=== PATIENT | female | born 1990 | race African-American/Black ===

== ENCOUNTER 2020-12-01 18:40 | Emergency (ER) | payer SELFPAY ==
[~2020-12-01] VITALS: Ht 152.4 cm; Wt 69.7 kg
[2020-12-01 18:45] VITALS: BP 141/92
--- NOTE | 2020-12-01 18:59 | PHYS DOC ---
Adult General Chief Complaint Chief Complaint: UPPER EXTREMITY PAIN HPI HPI Patient is a 30-year-old female patient presenting to the ED today complaining of mild intermittent right shoulder pain that began a couple minutes prior to coming to the ED. Patient states she was being arrested by police because they smelled marijuana in her vehicle. She states during the process they "manhandled out". She states the pain is worse on raising her right upper extremity above her chest. Denies anything specifically relieving the pain. Describes the pain as throbbing and intermittent (KIMBERLY PARK APRN) Review of Systems Review of Systems Constitutional: Denies fever or chills [] GI: Denies abdominal pain, nausea, vomiting, bloody stools or diarrhea [] : Denies dysuria or hematuria [] Musculoskeletal: Reports right shoulder pain. Denies back pain or joint pain [] Integument: Denies rash or skin lesions [] Neurologic: Denies headache, focal weakness or sensory changes [] All other systems were reviewed and found to be within normal limits, except as documented in this note. (KIMBERLY PARK APRN) Allergies Allergies Allergies Coded Allergies Type Severity Reaction Last Updated Verified No Known Drug Allergies 12/01/20 No (KIMBERLY PARK APRN) Physical Exam Physical Exam Constitutional: Well developed, well nourished, no acute distress, non-toxic appearance. [] Skin: Warm, dry, no erythema, no rash. [] Back: No tenderness, no CVA tenderness. [] Extremities: No tenderness, no cyanosis, no clubbing, ROM intact, no edema. +2 bilateral radial pulses. Cap refill less than 2 seconds bilateral fingers. Neurologic: Alert and oriented X 3, normal motor function, normal sensory f unction, no focal deficits noted. [] Psychologic: Affect normal, judgement normal, mood normal. [] (KIMBERLY PARK APRN) EKG EKG [] (KIMBERLY PARK APRN) Radiology/Procedures Radiology/Procedures []PROCEDURE: SHOULDER 2+V RIGHT Exam: Right shoulder 3 views INDICATION: Trauma TECHNIQUE: Frontal view of the right shoulder with internal and external rotation and transscapular Y views Comparisons: None FINDINGS: Bone mineralization is normal. No acute or healed fractures. Soft tissues are unremarkable. Joint spaces are well-maintained. IMPRESSION: No acute osseous abnormality. Electronically signed by: Sariah Diaz MD (12/01/2020 8:17 PM) [facility] DICTATED AND SIGNED BY: SARIAH DIAZ MD DATE: 12/01/202015 CC: KIMBERLY PARK APRN; PCP,VENANCIO ~MTH0 0 (KIMBERLY PARK APRN) Heart Score Risk Factors: Risk Factors: DM, Current or recent (<one month) smoker, HTN, HLP, family history of CAD, obesity. Risk Scores: Risk Factors: DM, Current or recent (<one month) smoker, HTN, HLP, family history of CAD, obesity. (KIMBERLY PARK APRN) Course & Med Decision Making Course & Med Decision Making Pertinent Labs and Imaging studies reviewed. (See chart for details) This is a 30-year-old female presenting to the ED today complaining of right shoulder pain, symptoms began a couple minutes prior to coming to the ED during police arrest. Right shoulder x-rays interpreted by radiologist are negative for any acute findings, discharged home. Ice elevation encouraged. OTC pain relievers. Ortho provided. (KIMBERLY PARK APRN) Dragon Disclaimer Dragon Disclaimer This electronic medical record was generated, in whole or in part, using a voice recognition dictation system. (KIMBERLY PARK APRN) Departure Departure: Impression: Primary Impression: Right shoulder strain Disposition: 01 DC HOME SELF CARE/HOMELESS Condition: STABLE Referrals: PCP,VENANCIO (PCP) BLAINE MALONE MD follow up in 1 week Patient Instructions: Shoulder Sprain Additional Instructions: You were seen for right shoulder pain, your right shoulder x-rays are negative for any acute findings. Try to ice and elevate the extremity through full range of motion several times a day and take [id number] pain relievers. Follow-up with the provided orthopedic doctor in 1 to 2 weeks. Attending Co-Sign Attending Co-Sign The patient was seen and interviewed as well as examined at the bedside. The chart was reviewed. The case was discussed. Agree with the plan of care. (JEFRY KELSEY MD) Dragon Disclaimer This chart was dictated in whole or in part using Voice Recognition software in a busy, high-work load, and often noisy Emergency Department environment. It may contain unintended and wholly unrecognized errors or omissions. (JEFRY KELSEY MD) Attending Signature Attending Signature I have participated in the care of this patient and I have reviewed and agree with all pertinent clinical information above including history, exam, and recommendations. (JEFRY KELSEY MD) Problem Qualifiers Primary Impression: Right shoulder strain Encounter type: initial encounter Qualified Codes: S46.911A - Strain of unspecified muscle, fascia and tendon at shoulder and upper arm level, right arm, initial encounter KIMBERLY PARK APRN Dec 01, 2020 18:59 JEFRY KELSEY MD Dec 02, 2020 01:47
--- NOTE | 2020-12-01 20:19 | RAD ---
Exam: Right shoulder 3 views INDICATION: Trauma TECHNIQUE: Frontal view of the right shoulder with internal and external rotation and transscapular Y views Comparisons: None FINDINGS: Bone mineralization is normal. No acute or healed fractures. Soft tissues are unremarkable. Joint spa jeff are well-maintained. IMPRESSION: No acute osseous abnormality. Electronically signed by: Sariah Devlin MD (12/01/2020 8:17 PM) [facility]
== END 2020-12-01 20:12 | disposition home or self-care (01) ==
LOC: ER 18:40
DX: S46.811A Strain of other muscles, fascia and tendons at shoulder and upper arm level, right arm, initial encounter (principal); X58.XXXA Exposure to other specified factors, initial encounter; Y93.89 Activity, other specified; Y92.89 Other specified places as the place of occurrence of the external cause; Y99.8 Other external cause status
CPT/HCPCS: 73030; 99283

== ENCOUNTER 2021-08-21 06:30 | Emergency (ER) | payer SELFPAY ==
[~2021-08-21] VITALS: Ht 152.4 cm; Wt 72.0 kg
[2021-08-21] MEDS ORDERED: IV NORMAL SALINE 1,000ML 1,000 ML IV ONE (07:00)
[2021-08-21 07:24] LABS: BACTERIA,URINE 0 /HPF (0-FEW); BILIRUBIN,URINE NEG (NEG); CLARITY,URINE HAZY; COLOR,URINE YELLOW; GLUCOSE,URINE NEG (NEG); NITRITE,URINE NEG (NEG); SQUAMOUS EPITHELIAL CELL,UR MANY /LPF; UROBILINOGEN,URINE 0.2 mg/dL (0.2 mg/dL)
[2021-08-21 07:41] LABS: U PREG PATIENT NEGATIVE (NEG)
[2021-08-21 08:03] LABS: BASO # 0.1 x10^3/uL (0.0-0.2); BASO % 1 % (0-3); EOS # 0.1 x10^3/uL (0.0-0.7); EOS % 0 % (0-3); HEMATOCRIT 40.1 % (36.0-47.0); HEMOGLOBIN 13.2 g/dL (12.0-15.5); LYMPH # 4.1 x10^3/uL (1.0-4.8); LYMPH % 34 % (24-48); MEAN CORPUSCULAR HEMOGLOBIN 32 pg (25-35); MEAN CORPUSCULAR HGB CONC 33 g/dL (31-37); MEAN CORPUSCULAR VOLUME 97 fL (79-100); MONO # 0.7 x10^3/uL (0.0-1.1); MONO % 6 % (0-9); NEUT # 7.2 x10^3uL (1.8-7.7); NEUT % 60 % (31-73); PLATELET COUNT 245 x10^3/uL (140-400); RED BLOOD COUNT 4.13 x10^6/uL (3.50-5.40); RED CELL DISTRIBUTION WIDTH 13.7 % (11.5-14.5); WHITE BLOOD COUNT 12.2 x10^3/uL (4.0-11.0)
[2021-08-21 08:10] LABS: CALCIUM 8.9 mg/dL (8.5-10.1); CREATININE 0.8 mg/dL (0.6-1.0); GFR 100.6; POTASSIUM 3.9 mmol/L (3.5-5.1)
[2021-08-21 08:15] LABS: ALBUMIN 4.5 g/dL (3.4-5.0); ALBUMIN/GLOBULIN RATIO 1.1 (1.0-1.7); MAGNESIUM 2.1 mg/dL (1.8-2.4); TOTAL BILIRUBIN 0.3 mg/dL (0.2-1.0); TOTAL PROTEIN 8.5 g/dL (6.4-8.2)
[2021-08-21] MEDS ORDERED: CONTRAST GIVEN. MC PRN (08:45)
[2021-08-21] MEDS ORDERED: IOHEXOL 300 MG/ML 75 ML VIAL. IV ONE (08:45)
--- NOTE | 2021-08-21 09:12 | RAD ---
Exam: CT abdomen/pelvis with intravenous contrast Indication: Lower abdominal/pelvic pain and vaginal bleeding. Comparison: None Technique: Helical CT imaging performed of the abdomen and pelvis after the intravenous administratio n of contrast. Sagittal and coronal reformats were obtained. One or more of the following individualized dose reduction techniques were utilized for this examinat ion: 1. Automated exposure control 2. Adjustment of the mA and/or kV according to patient size 3. Use of iterative reconstruction technique. Findings: Lower chest: Lung bases are clear. The heart is normal in size. Liver: The liver is normal in size. No focal lesion. Gallbladder/Biliary Tree: Normal. Pancreas: Normal. Spleen: Normal. Adrenal Glands: Normal Kidneys/Ureters/Bladder: Kidneys are normal in size and enhance symmetrically. No hydronephrosis. Ure ters and bladder are unremarkable. Reproductive Organs: The uterus is present and anteverted. There are irregular hypoattenuating cystic areas within the uterus in the region of the endometrial canal, and in the vagina. There is a 5.3 x 4.1 cm cystic lesion in the left ovary. The right ovary is normal. Stomach, small bowel, and colon: Stomach is normal. There is no small bowel obstruction. The colon is normal. Vasculature: Abdominal aorta is normal in caliber. Lymph Nodes: There are small bilateral external iliac chain lymph nodes measuring up to 6 mm short ax is, nonspecific. Peritoneum and retroperitoneum: Small amount of free fluid in the pelvis posterior to the uterus on t he right and immediately adjacent to the left ovarian lesion. Bones: No acute osseous abnormality. Impression: 1. Irregular cystic areas within the uterus in the region of the endometrial canal and in the vagina . There is also a 5.3 x 4.1 cm cystic lesion in the left ovary. Recommend pelvic ultrasound to [facility] evaluate. 2. Small amount of free fluid in the pelvis. Electronically signed by: Clarice Allen MD (08/21/2021 9:10 AM) [id number]
[2021-08-21 09:52] VITALS: BP 133/80
--- NOTE | 2021-08-21 10:49 | RAD ---
EXAM: ULTRASOUND PELVIS INDICATION: Reason: cystic lesions, vaginal bleeding, reported "hysterectomy" COMPARISON: None available. TECHNIQUE: Transabdominal and transvaginal sonography was performed. FINDINGS: The uterus is 6.1 x 3.6 x 2.8 cm. There are multiple simple appearing cystic lesions seen in the myom etrium of uncertain etiology. Although generally adenomyosis is associated with the microscopic and t iny cysts, a variant of adenomyosis could be considered. The largest cystic lesion in the uterus is 1 .3 cm in size. No solid masses are identified. The endometrial stripe is 2 mm in thickness. In the left adnexa there is a a complex the hypoechoic lesion with septations and the increased throu gh transmission. There is a peripheral vascularity and the wall seen with venous flow noted with the color Doppler. There is no solid nodule or internal vascularity noted. Overall measurement of the catheter hypoechoic lesion is 5.2 cm, likely hemorrhagic cyst. The right ovary is 3.1 x 2.3 x 1.9 cm. Normal appearance is seen with few follicles and normal color flow noted. No significant free fluid in the pelvis noted. IMPRESSION: 1. The left adnexa 5.2 cm from hypoechoic, complex lesion with no internal vascularity is favored to be hemorrhagic cyst. Follow-up the ultrasound in 6 weeks is recommended to reevaluate. 2. Multiple cystic lesions in the uterus are simple appearing and could represent a variation of carlitos omyosis. No solid mass identified. Electronically signed by: Dell Hughes MD (08/21/2021 10:47 AM) [id number]
[2021-08-21] MEDS ORDERED: NAPR-695 PO (10:55)
--- NOTE | 2021-08-21 10:57 | PHYS DOC ---
Past History Past Medical History: No Pertinent History Past Surgical History: , Hysterectomy Alcohol Use: None General Adult EDM: Chief Complaint: VAGINAL BLEEDING HPI: HPI: Patient is a [age] year old [sex] who presents with [] Review of Systems: Review of Systems: Constitutional: Denies fever or chills Eyes: Denies redness or eye pain HENT: Denies nasal congestion or sore throat Respiratory: Denies cough or shortness of breath Cardiovascular: Denies chest pain or palpitations GI: Denies abdominal pain, nausea, or vomiting : Denies dysuria or hematuria Musculoskeletal: Denies back pain or joint pain Integument: Denies rash or skin lesions Neurologic: Denies headache, focal weakness or sensory changes Complete systems were reviewed and found to be within normal limits, except as documented in this note. Current Medications: Current Meds: Current Medications Medications (Trade) Dose Ordered Sig/Divya Start Time Stop Time Status Last Admin Dose Admin Info (Do NOT chart on this entry -- for MONITORING) 1 each PRN DAILY PRN 08/21/21 08:45 08/23/21 08:44 Iohexol (Omnipaque 300 Mg/ml) 75 ml 1X ONCE 08/21/21 08:45 08/21/21 08:46 DC 08/21/21 08:47 75 ML Sodium Chloride 1,000 ml @ 1,000 mls/hr 1X ONCE 08/21/21 07:00 08/21/21 07:59 DC 08/21/21 07:49 1,000 MLS/HR Allergies: Allergies: Allergies Coded Allergies Type Severity Reaction Last Updated Verified No Known Drug Allergies 12/01/20 No Physical Exam: PE: Constitutional: Well developed, well nourished, no acute distress, non-toxic appearance HENT: Normocephalic, atraumatic Eyes: PERRL, EOMI, conjunctiva normal, no discharge Neck: Normal range of motion, no tenderness, supple Lungs & Thorax: No respiratory distress, equal chest rise and fall Abdomen: Soft, no tenderness Skin: Warm, dry, no erythema, no rash Back: No tenderness, no CVA tenderness Extremities: No tenderness, ROM intact, no edema Neurologic: Alert and oriented X 3, normal motor function, normal sensory function, no focal deficits noted Psychologic: Affect normal, judgment normal Current Patient Data: Labs: Laboratory Tests Test 08/21/21 06:35 08/21/21 07:48 Urine Collection Type Unknown Urine Color Yellow Urine Clarity Hazy Urine pH 6.0 Urine Specific [place] >=1.030 Urine Protein Trace (NEG-TRACE) Urine Glucose (UA) Neg mg/dL (NEG) Urine Ketones (Stick) Trace mg/dL (NEG) Urine Blood Small (NEG) Urine Nitrite Neg (NEG) Urine Bilirubin Neg (NEG) Urine Urobilinogen Dipstick 0.2 mg/dL (0.2 mg/dL) Urine Leukocyte Esterase Mod (NEG) Urine RBC 1-2 /HPF (0-2) Urine WBC 11-20 /HPF (0-4) Urine Squamous Epithelial Cells Many /LPF Urine Bacteria 0 /HPF (0-FEW) Urine Test Negative (NEG) White Blood Count 12.2 x10^3/uL (4.0-11.0) H Red Blood Count 4.13 x10^6/uL (3.50-5.40) Hemoglobin 13.2 g/dL (12.0-15.5) Hematocrit 40.1 % (36.0-47.0) Mean Corpuscular Volume 97 fL (79-100) Mean Corpuscular Hemoglobin 32 pg (25-35) Mean Corpuscular Hemoglobin Concent 33 g/dL (31-37) Red Cell Distribution Width 13.7 % (11.5-14.5) Platelet Count 245 x10^3/uL (140-400) Neutrophils (%) (Auto) 60 % (31-73) Lymphocytes (%) (Auto) 34 % (24-48) Monocytes (%) (Auto) 6 % (0-9) Eosinophils (%) (Auto) 0 % (0-3) Basophils (%) (Auto) 1 % (0-3) Neutrophils # (Auto) 7.2 x10^3uL (1.8-7.7) Lymphocytes # (Auto) 4.1 x10^3/uL (1.0-4.8) Monocytes # (Auto) 0.7 x10^3/uL (0.0-1.1) Eosinophils # (Auto) 0.1 x10^3/uL (0.0-0.7) Basophils # (Auto) 0.1 x10^3/uL (0.0-0.2) Sodium Level 137 mmol/L (136-145) Potassium Level 3.9 mmol/L (3.5-5.1) Chloride Level 102 mmol/L (98-107) Carbon Dioxide Level 24 mmol/L (21-32) Anion Gap 11 (6-14) Blood Urea Nitrogen 13 mg/dL (7-20) Creatinine 0.8 mg/dL (0.6-1.0) Estimated GFR (Cockcroft-Gault) 100.6 BUN/Creatinine Ratio 16 (6-20) Glucose Level 76 mg/dL (70-99) Calcium Level 8.9 mg/dL (8.5-10.1) Magnesium Level 2.1 mg/dL (1.8-2.4) Total Bilirubin 0.3 mg/dL (0.2-1.0) Aspartate Amino Transferase (AST) 12 U/L (15-37) L Alanine Aminotransferase (ALT) 19 U/L (14-59) Alkaline Phosphatase 49 U/L (46-116) Total Protein 8.5 g/dL (6.4-8.2) H Albumin 4.5 g/dL (3.4-5.0) Albumin/Globulin Ratio 1.1 (1.0-1.7) Lipase 523 U/L (73-393) H Microbiology 08/21/21 Wet Prep - Final, Complete Vital Signs: Vital Signs Date Time Temp Pulse Resp B/P (MAP) Pulse Ox O2 Delivery O2 Flow Rate FiO2 08/21/21 09:52 77 16 133/80 (97) 100 Room Air 08/21/21 06:40 98.3 EKG: EKG: [] Radiology/Procedures: Radiology/Procedures: PROCEDURE: CT ABD PELV W/ IV CONTRST ONLY Exam: CT abdomen/pelvis with intravenous contrast Indication: Lower abdominal/pelvic pain and vaginal bleeding. Comparison: None Technique: Helical CT imaging performed of the abdomen and pelvis after the intravenous administration of contrast. Sagittal and coronal reformats were obtained. One or more of the following individualized dose reduction techniques were utilized for this examination: 1. Automated exposure control 2. Adjustment of the mA and/or kV according to patient size 3. Use of iterative reconstruction technique. Findings: Lower chest: Lung bases are clear. The heart is normal in size. Liver: The liver is normal in size. No focal lesion. Gallbladder/Biliary Tree: Normal. Pancreas: Normal. Spleen: Normal. Adrenal Glands: Normal Kidneys/Ureters/Bladder: Kidneys are normal in size and enhance symmetrically. No hydronephrosis. Ureters and bladder are unremarkable. Reproductive Organs: The uterus is present and anteverted. There are irregular hypoattenuating cystic areas within the uterus in the region of the endometrial canal, and in the vagina. There is a 5.3 x 4.1 cm cystic lesion in the left ovary. The right ovary is normal. Stomach, small bowel, and colon: Stomach is normal. There is no small bowel obstruction. The colon is normal. Vasculature: Abdominal aorta is normal in caliber. Lymph Nodes: There are small bilateral external iliac chain lymph nodes emigdio uring up to 6 mm short axis, nonspecific. Peritoneum and retroperitoneum: Small amount of free fluid in the pelvis posterior to the uterus on the right and immediately adjacent to the left ovarian lesion. Bones: No acute osseous abnormality. Impression: 1. Irregular cystic areas within the uterus in the region of the endometrial canal and in the vagina. There is also a 5.3 x 4.1 cm cystic lesion in the left ovary. Recommend pelvic ultrasound to further evaluate. 2. Small amount of free fluid in the pelvis. Electronically signed by: Clarice Allen MD (08/21/2021 9:10 AM) [id number] PROCEDURE: US PELVIS W/TV EXAM: ULTRASOUND PELVIS INDICATION: Reason: cystic lesions, vaginal bleeding, reported "hysterectomy" COMPARISON: None available. TECHNIQUE: Transabdominal and transvaginal sonography was performed. FINDINGS: The uterus is 6.1 x 3.6 x 2.8 cm. There are multiple simple appearing cystic lesions seen in the myometrium of uncertain etiology. Although generally adenomyosis is associated with the microscopic and tiny cysts, a variant of adenomyosis could be considered. The largest cystic lesion in the uterus is 1.3 cm in size. No solid masses are identified. The endometrial stripe is 2 mm in thickness. In the left adnexa there is a a complex the hypoechoic lesion with septations and the increased through transmission. There is a peripheral vascularity and the wall seen with venous flow noted with the color Doppler. There is no solid nodule or internal vascularity noted. Overall measurement of the catheter hypoechoic lesion is 5.2 cm, likely hemorrhagic cyst. The right ovary is 3.1 x 2.3 x 1.9 cm. Normal appearance is seen with few follicles and normal color flow noted. No significant free fluid in the pelvis noted. IMPRESSION: 1. The left adnexa 5.2 cm from hypoechoic, complex lesion with no internal vascularity is favored to be hemorrhagic cyst. Follow-up the ultrasound in 6 weeks is recommended to reevaluate. 2. Multiple cystic lesions in the uterus are simple appearing and could represent a variation of adenomyosis. No solid mass identified. Electronically signed by: Dell Hughes MD (08/21/2021 10:47 AM) [id number] Heart Score: C/O Chest Pain: N/A Course & Med Decision Making: Course & Med Decision Making Pertinent Labs and Imaging studies reviewed. (See chart for details) Patient stable for discharge with outpatient follow-up with PCP/MINING SUPPORT WORKER. MINING SUPPORT WORKER referral provided. Discussed findings and plan with patient, who acknowledges understanding and agreement. Dragon Disclaimer: DragUltora Disclaimer: This electronic medical record was generated, in whole or in part, using a voice recognition dictation system. Departure Departure: Impression: Primary Impression: Abnormal vaginal bleeding Additional Impression: Ovarian cyst Qualified Codes: N83.202 - Unspecified ovarian cyst, left side Disposition: HOME / SELF CARE / HOMELESS Condition: STABLE Referrals: PCP,NO (PCP) HARJEET WAY MD Patient Instructions: Abnormal Uterine Bleeding, Ovarian Cyst, [id number] Additional Instructions: Please follow with MATERIAL MANAGER for further evaluation and treatment. It is unclear what procedure was done at [facility] with your prior MATERIAL MANAGER. You can obtain your medical records through [facility] to further information or follow with new MATERIAL MANAGER and sign a medical release of your records that they can help obtain for you. Scripts Naproxen (NAPROXEN) 375 Mg Tablet 1 TAB PO TID PRN PRN for PAIN, #30 TAB 0 Refills with food Prov: HARJEET BURGESS DO 08/21/21 HARJEET BURGESS DO Aug 21, 2021 10:57
[2021-08-22 19:11] LABS: CHLAMYDIA PROBE Negative (Negative)
== END 2021-08-21 11:00 | disposition home or self-care (01) ==
LOC: ER 06:30
DX: N83.202 Unspecified ovarian cyst, left side (principal); N93.8 Other specified abnormal uterine and vaginal bleeding; Z90.710 Acquired absence of both cervix and uterus; Z98.890 Other specified postprocedural states
CPT/HCPCS: 74177; 76830; 76856; 80053; 81001; 81025; 83690; 83735; 85025; 87086; 87491; 87591; 96360; 99285; J7030; Q0111; Q9967